=== PATIENT | male | born 1990 | race Caucasian/White ===

== ENCOUNTER 2021-07-31 17:43 | Emergency (ER) | payer SELFPAY ==
[~2021-07-31] VITALS: Ht 182.9 cm; Wt 105.7 kg
--- NOTE | 2021-07-31 17:50 | NUR ---
SEEN BY DR DOUGLAS AT BEDSIDE
--- NOTE | 2021-07-31 17:55 | NUR ---
URINE SPECIMEN SENT TO LAB
--- NOTE | 2021-07-31 17:55 | NUR ---
BIBF THIS 31YO MALE PATIENT PER WHEELCHAIR WITH CC OF "Abdominal pain,nausea/vomiting I think we have food poisoning" PATIENT CANNOT REMEMBER THE FREQUENCY OF VOMITING. PLACED COMFORTABLY IN BED. VITALS CHECKED
[2021-07-31] MEDS ORDERED: DICYCLOMINE HCL INJ 20 MG/2 ML AMPUL IM ONE ×2 (18:00→18:48)
[2021-07-31] MEDS ORDERED: IV NS 0.9% 1,000 ML IV ONE (18:00)
[2021-07-31] MEDS ORDERED: ONDANSETRON HCL/PF 4 MG/2 ML VIAL IV ONE (18:00)
--- NOTE | 2021-07-31 18:20 | NUR ---
IV CANNULA INSERTED ON RIGHT AC USING G20. LINE IS PATENT, FLUSHED WITH NS
[2021-07-31] MEDS ORDERED: ONDANSETRON HCL/PF 4 MG/2 ML VIAL ONE (18:48)
[2021-07-31] MEDS ORDERED: ONDA4TAB5 PO (19:15)
--- NOTE | 2021-07-31 19:50 | NUR ---
IV CANNULA REMOVED
--- NOTE | 2021-07-31 20:39 | NUR ---
Patient discharged to home in stable condition. Written and verbal after care instructions given. Patient verbalizes understanding of instruction.
[2021-07-31 20:40] VITALS: BP 134/81
== END 2021-07-31 20:40 | disposition home or self-care (01) ==
LOC: ER 17:43
DX: R11.2 Nausea with vomiting, unspecified (principal); R19.7 Diarrhea, unspecified; R10.9 Unspecified abdominal pain
CPT/HCPCS: 96361; 96372; 96374; 99284; J0500; J2405; J7030